=== PATIENT | female | born 1940 | race Caucasian/White ===

== ENCOUNTER 2017-05-07 09:18 | Day surgery (SDC) | payer MEDICARE, OTHER ==
--- NOTE | ~2017-05-07 | EGD ---
EGD REPORT [facility] [address] [place]. [id number] NAME: STAICA HAWLEY : [birth year] STATUS : REG [facility]#: [id number] AGE: 76 ADM/REG DATE : 05/07/17 MR#: [id number] REPORT SERV DATE: 05/07/17 DICTATED BY: YAZAN WEBB DATE: 05/07/17 REPORT STATUS : Draft TRANSCRIBED BY: [facility] DATE: 05/07/17 [facility] Patient Name: Stacia Hawley Date of : 1940 Attending MD: YAZAN WEBB MD Procedure Date No Time: 05/07/2017 Procedure: Colonoscopy Indications: High risk colon cancer surveillance: Personal history of colonic polyps Referring MD: CHRIS MONAE MD Medicines: as per anesthesia Complications: No immediate complications. Procedure: Pre-Anesthesia Assessment: - ASA Grade Assessment: II - A patient with mild systemic disease. After I obtained informed consent, the scope was passed under direct vision. Throughout the procedure, the patient's blood pressure, pulse, and oxygen saturations were monitored continuously. The Colonoscope was introduced through the anus and advanced to the cecum, identified by appendiceal orifice and ileocecal valve. The colonoscopy was somewhat difficult due to restricted mobility of the colon, significant looping and a tortuous colon. The patient tolerated the procedure. The quality of the bowel preparation was adequate to identify polyps. Findings: The perianal and digital rectal examinations were normal. Many small and large-mouthed diverticula were found in the sigmoid colon and in the descending colon. Internal hemorrhoids were found during endoscopy and were mild. Impression: - Diverticulosis in the sigmoid colon and in the descending colon. - Internal hemorrhoids. Recommendation: - Continue present medications. Procedure Code(s): --- Professional --- 04254, Colonoscopy, flexible, proximal to splenic flexure; diagnostic, with or without collection of specimen(s) by brushing or washing, with or without colon decompression (separate procedure) EGD REPORT [address] [address] NAME: STACIA HAWLEY : [birth year] STATUS : REG [facility]#: [id number] AGE: 76 ADM/REG DATE : 05/07/17 MR#: [id number] REPORT SERV DATE: 05/07/17 DICTATED BY: YAZAN WEBB. DATE: 05/07/17 REPORT STATUS : Draft TRANSCRIBED BY: [employer] DATE: 05/07/17 Diagnosis Code(s): --- Professional --- K64.8, Other hemorrhoids K57.30, Diverticulosis of large intestine without perforation or abscess without bleeding Z86.010, Personal history of colonic polyps CPT copyright 2013 [employer]. All rights reserved. The codes documented in this report are preliminary and upon regional merchandising manager review may be revised to meet current compliance requirements. YAZAN WEBB MD 05/07/2017 11:18 AM This report has been signed electronically. Number of Addenda: 0 Note Initiated On: 05/07/2017 10:51 AM
[~2017-05-07 09:18] MED LIST: CALTRA600D PO; CO Q-10100 MG PO; FISH-EPA1000 MG PO; HALF81 PO; K500 PO; METHYLFOLATE PO; TUMSROLL PO; VITAMIN D31000 UNIT PO; [UNRECOGNIZED DRUG - OTHER]
== END 2017-05-07 23:59 | disposition home or self-care (01) ==
LOC: DMU 09:18
PROVIDERS: Internal Medicine Gastroenterology
PROC: 0DJD8ZZ Inspection of Lower Intestinal Tract, Via Natural or Artificial Opening Endoscopic (ICD-10-PCS; principal; 2017-05-07 10:30)
DX: Z12.11 Encounter for screening for malignant neoplasm of colon (principal); K64.8 Other hemorrhoids; K57.30 Diverticulosis of large intestine without perforation or abscess without bleeding; D64.9 Anemia, unspecified; Z86.010 Personal history of colon polyps